=== PATIENT | male | born 1945 | race Caucasian/White ===

== ENCOUNTER 2016-07-18 14:01 | Emergency (ER) | payer OTHER ==
[2016-07-18 15:01] LABS: HEMOGLOBIN 15.7 gm/dl (14.0-17.5); RED BLOOD COUNT 5.11 M/UL (4.20-5.50); WHITE BLOOD COUNT 9.7 K/UL (4.5-11.0)
== END 2016-07-18 19:20 | disposition home or self-care (01) ==
LOC: ER1 14:01
PROVIDERS: Emergency Medicine
DX: R07.9 Chest pain, unspecified (principal); I25.10 Atherosclerotic heart disease of native coronary artery without angina pectoris; I10 Essential (primary) hypertension; E11.9 Type 2 diabetes mellitus without complications; Z88.5 Allergy status to narcotic agent
CPT/HCPCS: 36415; 71010; 80053; 80076; 82550; 82553; 83690; 83874; 83880; 84484; 85025; 85610; 85730; 93005; 99285